=== PATIENT | male | born 1950 | race Caucasian/White ===

== ENCOUNTER 2017-09-13 19:47 | Emergency (ER) | payer OTHER ==
[~2017-09-13] VITALS: Ht 172.7 cm; Wt 132.0 kg
[~2017-09-13 19:47] MED LIST: ALBUTEROL2.5 MG/0.5 IH; ALLOPURINOL300 MG PO; ASPIR-LOW81 MG PO; BUPROPION XL300 MG PO; DESYREL100 MG PO; FENOFIBRATE160 M1 PO; LASIX40 MG PO; NAPROSYN375 MG PO; POTASSIUM CHLO10 ME4 PO; RANITIDINE HCL150 MG PO; SIMPLY SLEEP25 M1 PO; SPIRIVA1 INHALATI IH; THEO-24400 MG PO
[2017-09-13 20:00] LABS: HEMATOCRIT 47.2 % (38.0-50.0); HEMOGLOBIN 16.2 G/DL (12.5-16.6); MCH 31.2 PG (29.0-34.0); MCHC 34.3 G/DL (30.0-36.0); MCV 90.9 FL (86-99); RBC DIS.WIDTH-CV 14.7 % (11.8-14.6); RBC DIS.WIDTH-SD 49.1 % (39-53); RED BLOOD COUNT 5.19 M/uL (4.00-5.50); WHITE BLOOD COUNT 10.6 K/uL (4.1-10.2)
[2017-09-13 20:11] LABS: ALBUMIN 4.4 g/dL (3.2-4.8); CHLORIDE 99 mEq/L (99-109); POTASSIUM 3.3 mEq/L (3.7-5.4); SODIUM 137 mEq/L (136-147)
[2017-09-13 20:13] LABS: GLUCOSE 153 mg/dL (70-99); TOTAL PROTEIN 7.8 g/dL (6.4-8.3)
[2017-09-13 20:15] LABS: TOTAL BILIRUBIN 0.4 mg/dL (0.0-1.0)
[2017-09-13 20:17] LABS: ALKALINE PHOSPHATASE 50 IU/L (3-129); GFR ESTIMATE (CALCULATED) > 59 mL/min/ (58.99-99999)
[2017-09-13 20:18] LABS: UREA NITROGEN (BUN) 21 mg/dL (9-23)
[2017-09-13 20:19] LABS: AST (GOT) 24 IU/L (2-34)
[2017-09-13 20:19] LABS: APPEARANCE SL.HAZY ((CLEAR)); BILIRUBIN NEGATIVE; BLOOD NEGATIVE; COLOR YELLOW ((YELLOW)); GLUCOSE (STRIP) NEGATIVE; KETONES NEGATIVE; LEUKOCYTES NEGATIVE; NITRITE NEGATIVE; PROTEIN (STRIP) 100; UROBILINOGEN 0.2 MG/DL (0.2-1.0)
[2017-09-13 20:20] LABS: ALT (GPT) 14 IU/L (3-49)
[2017-09-13 20:31] LABS: BACTERIA NONE SEEN /HPF; EPITHELIAL CELLS RARE /HPF; MUCUS TRACE /LPF; RED BLOOD CELLS 0-5 /HPF (0-5); UCUL ADDED? NO; WHITE BLOOD CELLS 0-5 /HPF (0-5)
[2017-09-13 20:45] LABS: PLATELET CLUMPS PRESENT - PLATELET COUNT APPEARS ADQ.; PLATELET COUNT UNABLE TO REPORT K/uL (156-360)
[2017-09-13] MEDS ORDERED: FLOMAX0.4 MG PO ×2 (21:15)
[2017-09-13] MEDS ORDERED: LIDODERM 5% P1 PATCH TD (22:49)
[2017-09-13] MEDS ORDERED: SKELAXIN800 MG PO (22:49)
[2017-09-13] MEDS ORDERED: MOTRIN600 MG PO (22:50)
[2017-09-13 23:17] VITALS: BP 120/71
== END 2017-09-13 23:18 | disposition home or self-care (01) ==
LOC: EME 19:47
DX: M54.42 Lumbago with sciatica, left side (principal); M51.26 Other intervertebral disc displacement, lumbar region; K21.9 Gastro-esophageal reflux disease without esophagitis; E78.5 Hyperlipidemia, unspecified; F32.9 Major depressive disorder, single episode, unspecified; F17.200 Nicotine dependence, unspecified, uncomplicated; Z79.82 Long term (current) use of aspirin; Z87.39 Personal history of other diseases of the musculoskeletal system and connective tissue; Z87.19 Personal history of other diseases of the digestive system; Z95.9 Presence of cardiac and vascular implant and graft, unspecified; Z98.890 Other specified postprocedural states; Z85.47 Personal history of malignant neoplasm of testis; Z90.49 Acquired absence of other specified parts of digestive tract
CPT/HCPCS: 72131; 80053; 81003; 85027; 99281; 99284; J1885; J3010